=== PATIENT | male | born 1995 | race African-American/Black ===

== ENCOUNTER 2017-06-23 17:17 | Emergency (ER) | payer BC, OTHER ==
[~2017-06-23] VITALS: Ht 170.2 cm; Wt 61.2 kg
[2017-06-23 20:02] VITALS: BP 118/72
== END 2017-06-23 20:05 | disposition home or self-care (01) ==
LOC: ER 17:17
DX: S61.012A Laceration without foreign body of left thumb without damage to nail, initial encounter (principal); W26.0XXA Contact with knife, initial encounter; Y93.89 Activity, other specified; Y92.89 Other specified places as the place of occurrence of the external cause; Y99.8 Other external cause status

== ENCOUNTER 2017-12-10 18:20 | Emergency (ER) | payer BC, OTHER ==
[~2017-12-10] VITALS: Ht 172.7 cm; Wt 59.0 kg
--- NOTE | ~2017-12-10 | EKG ---
[address] [employer] [place] [address] ELECTROCARDIOGRAM REPORT Name: ROBERT BLACKMAN Room #: MONTEZ Andrews#: [id number] Admission: 12/10/17 Attend Phys: Discharge: 12/10/17 Date of : [birth year] Report #: [id number] THIS REPORT FOR: //name// [facility] ED Test Date: 2017-12-10 Test Time: 18:49:35 Pat Name: ROBERT BLACKMAN Department: Room: Gender: Picture [employer]anger: MZOOK : 1995 Requested By: Alec Fuentes Order Number: [id number] MD: Yung Harrington Measurements Intervals [place] Rate: 76 P: -20 IN: 137 QRS: 60 QRSD: 78 T: 5 QT: 401 QTc: 451 Interpretive Statements Sinus rhythm Early repolarization No previous ECG available for comparison Electronically Signed On 12-11-2017 8:01:14 CDT by Yung Harrington [email or web address] <ELECTRONICALLY SIGNED> By: Yung Harrington MD, [facility] 12/11/17 0801 1849 1849 Yung Harrington MD, FACC /EPI
[2017-12-10 18:37] LABS: ABSOLUTE NEUTROPHILS 3.5 thou/uL (1.4-8.2); BASOPHILS 0.8 % (0.0-2.0); EOSINOPHILS 0.2 % (0.0-3.0); HEMOGLOBIN 15.5 gm/dL (14.0-18.0); LYMPHOCYTES 27.9 % (24.0-44.0); MCH 30.6 pg (26.0-34.0); MCHC 34.5 g/dL (28.0-37.0); MCV 88.6 fL (80.0-100.0); MONOCYTES 7.4 % (1.0-8.0); PLATELET COUNT 208 thou/uL (150-400); POLYS 63.7 % (36.0-66.0); RBC 5.08 mil/uL (4.50-6.00); RDW 13.3 % (10.5-14.5); WBC 5.5 thou/uL (4.0-11.0)
[2017-12-10 18:48] LABS: ANION GAP 12 mmol/L (7-16); BUN 10 mg/dL (7-18); CHLORIDE 103 mmol/L (98-107); CO2 23 mmol/L (21-32); CREATININE 1.2 mg/dL (0.7-1.3); GLUCOSE 92 mg/dL (74-106); POTASSIUM 3.1 mmol/L (3.5-5.1); SODIUM 138 mmol/L (136-145)
[2017-12-10 18:55] LABS: BE(vivo) 1.1 mmol/L (-2 to +3); HCO3 20.7 mmol/L (22.0-26.0); PCO2 VENOUS 22.4 mmHg (41.0-51.0); PO2 VENOUS 36.5 mmHg (35.0-45.0)
[2017-12-10 18:57] LABS: ALBUMIN 4.7 g/dL (3.4-5.0); MAGNESIUM 1.7 mg/dL (1.8-2.4); SGOT 19 U/L (15-37); SGPT 14 U/L (30-65); TOTAL BILIRUBIN 3.2 mg/dL (<0.1-1.0); TOTAL PROTEIN 7.6 g/dL (6.4-8.2); TROPONIN-I < 0.04 ng/mL (<0.06)
[2017-12-10 18:58] LABS: SALICYLATE < 2.8 mg/dL (2.8-20.0)
[2017-12-10 20:13] LABS: URINE BILIRUBIN NEGATIVE (Negative); URINE BLOOD NEGATIVE (Negative); URINE CLARITY CLEAR; URINE COLOR YELLOW; URINE GLUCOSE-RANDOM* NEGATIVE (Negative); URINE KETONES NEGATIVE (Negative); URINE LEUKOCYTES-REFLEX NEGATIVE (Negative); URINE NITRITE-REFLEX NEGATIVE (Negative); URINE PROTEIN (DIPSTICK) NEGATIVE (Negative)
[2017-12-10 20:21] LABS: AMP/METHAMP Negative (Negative); BARBITURATES Negative (Negative); BENZODIAZEPINES Negative (Negative); COCAINE Negative (Negative); METHADONE Negative (Negative); OPIATES Negative (Negative); PCP Negative (Negative)
[2017-12-10 21:24] VITALS: BP 114/79
== END 2017-12-10 21:25 | disposition home or self-care (01) ==
LOC: ER 18:20
PROVIDERS: Physician Assistant
DX: F41.9 Anxiety disorder, unspecified (principal); R74.0 Nonspecific elevation of levels of transaminase and lactic acid dehydrogenase [LDH]; F12.10 Cannabis abuse, uncomplicated; E87.3 Alkalosis; R94.130 Abnormal response to nerve stimulation, unspecified

== ENCOUNTER 2019-05-11 21:48 | Emergency (ER) | payer BC, OTHER ==
[~2019-05-11] VITALS: Ht 170.2 cm; Wt 61.2 kg
[2019-05-11] MEDS ORDERED: NORCO 5-325 TA1 EAC1 PO (22:39)
[2019-05-11] MEDS ORDERED: IBUPROFEN 600600 M1 PO (22:39)
[2019-05-11] MEDS ORDERED: AMOXICILLIN 50500 M1 PO (22:39)
[2019-05-11 23:04] VITALS: BP 113/79
== END 2019-05-11 23:05 | disposition home or self-care (01) ==
LOC: ER 21:48
DX: K08.89 Other specified disorders of teeth and supporting structures (principal)

== ENCOUNTER 2021-01-07 08:08 | Emergency (ER) | payer BC, OTHER ==
[~2021-01-07] VITALS: Ht 170.2 cm; Wt 57.6 kg
[~2021-01-07 08:08] MED LIST: AMOXICILLIN 50500 M1 PO; IBUPROFEN 600600 M1 PO; NORCO 5-325 TA1 EAC1 PO
[2021-01-07] MEDS ORDERED: PENICILLIN V P500 MG PO (09:16)
[2021-01-07] MEDS ORDERED: IBUPROFEN 600600 M1 PO (09:17)
[2021-01-07 09:38] VITALS: BP 128/86
== END 2021-01-07 09:39 | disposition home or self-care (01) ==
LOC: ER 08:08
DX: K02.9 Dental caries, unspecified (principal)